=== PATIENT | female | born 1950 | race African-American/Black ===

== ENCOUNTER 2018-09-25 14:22 | Emergency (ER) | payer MEDICARE ==
[~2018-09-25] VITALS: Ht 167.6 cm; Wt 62.6 kg
--- NOTE | 2018-09-25 15:51 | EKG ---
[facility] [address] [place] [address] Test Date: 2018-09-25 Test Time: 15:34:08 Pat Name: LORENE NEWTON Department: Room: Gender: F Consumer Product Advisor: : [id number] Requested By: MARY HELM Order Number: [id number] Reading MD: Measurements Intervals [place] Rate: 57 P: 43 NV: 130 QRS: 20 QRSD: 84 T: -109 QT: 402 QTc: 394 Interpretive Statements SINUS RHYTHM LEFT ATRIAL ABNORMALITY R-S TRANSITION ZONE IN V LEADS DISPLACED TO THE RIGHT QRS(T) CONTOUR ABNORMALITY CONSIDER ANTEROLATERAL MYOCARDIAL DAMAGE ST & T ABNORMALITY, CONSIDER INFERIOR ISCHEMIA OR LEFT VENTRICULAR STRAIN ABNORMAL ECG RI6.01 No previous ECG available for comparison
[2018-09-25 16:02] LABS: BASO % 1 % (0-3); EOS % 0 % (0-3); HEMATOCRIT 40.5 % (36.0-47.0); HEMOGLOBIN 14.3 g/dL (12.0-15.5); LYMPH # 2.2 x10^3/uL (1.0-4.8); LYMPH % 30 % (24-48); MEAN CORPUSCULAR HEMOGLOBIN 31 pg (25-35); MEAN CORPUSCULAR HGB CONC 35 g/dL (31-37); MEAN CORPUSCULAR VOLUME 86 fL (79-100); MONO # 0.5 x10^3/uL (0.0-1.1); MONO % 7 % (0-9); NEUT # 4.6 x10^3uL (1.8-7.7); NEUT % 62 % (31-73); PLATELET COUNT 150 x10^3/uL (140-400); RED CELL DISTRIBUTION WIDTH 13.4 % (11.5-14.5); WHITE BLOOD COUNT 7.3 x10^3/uL (4.0-11.0)
[2018-09-25 16:12] LABS: CREATININE 0.7 mg/dL (0.6-1.0); GFR 100.4
[2018-09-25 16:18] VITALS: BP 144/65
[2018-09-25 16:18] LABS: ALBUMIN 3.9 g/dL (3.4-5.0); ALBUMIN/GLOBULIN RATIO 0.9 (1.0-1.7); TOTAL BILIRUBIN 0.4 mg/dL (0.2-1.0); TOTAL PROTEIN 8.2 g/dL (6.4-8.2)
--- NOTE | 2018-09-25 16:34 | PHYS DOC ---
Past Medical History Past Medical History: Hypertension, Other Additional Past Medical Histor: low bone density Past Surgical History: Hysterectomy Alcohol Use: None Drug Use: None Adult General Chief Complaint Chief Complaint: DIZZY/LIGHT HEADED [facility] HPI Patient is a 68 year olD female presenting with report of elevated blood pressures her blood pressures were actually pretty good in the 140s over 60s but she was worried that low number was too low so she only cut her dose to just morning instead of morning and night. She then began to develop some dizziness like the room was spinning on an intermittent basis as she is come to the emergency room because her blood pressures have been as high as 200 systolic occasionally over the last few days no chest pain no shortness of breath currently feels better no double vision symptoms are mild they're worsened with head position. Review of Systems Review of Systems Constitutional: Denies fever or chills [] Eyes: Denies change in visual acuity, redness, or eye pain [] HENT: Denies nasal congestion or sore throat [] Respiratory: Denies cough or shortness of breath [] Cardiovascular: No additional information not addressed in HPI [] GI: Denies abdominal pain, nausea, vomiting, bloody stools or diarrhea [] : Denies dysuria or hematuria [] Neurologic: Denies headache, focal weakness or sensory changes [] Endocrine: Denies polyuria or polydipsia [] All other systems were reviewed and found to be within normal limits, except as documented in this note. Allergies Allergies Allergies Coded Allergies Type Severity Reaction Last Updated Verified No Known Drug Allergies 07/09/16 No Physical Exam Physical Exam Constitutional: Well developed, well nourished, no acute distress, non-toxic appearance. [] HENT: Normocephalic, atraumatic, bilateral external ears normal, oropharynx moist, no oral exudates, nose normal. [] Eyes: PERRLA, EOMI, conjunctiva normal, no discharge. [] Neck: Normal range of motion, no tenderness, supple, no stridor. [] Cardiovascular:Heart rate regular rhythm, no murmur [] Lungs & Thorax: Bilateral breath sounds clear to auscultation [] Abdomen: Bowel sounds normal, soft, no tenderness, no masses, no pulsatile masses. [] Skin: Warm, dry, no erythema, no rash. [] Back: No tenderness, no CVA tenderness. [] Extremities: No tenderness, no cyanosis, no clubbing, ROM intact, no edema. [] Neurologic: Alert and oriented X 3, normal motor function, normal sensory function, no focal deficits noted. [][id number] intact male motion touch strength and sensation intact speech normal Psychologic: Affect normal, judgement normal, mood normal. [] Current Patient Data Vital Signs Vital Signs Date Time Temp Pulse Resp B/P (MAP) Pulse Ox O2 Delivery O2 Flow Rate FiO2 09/25/18 14:44 98.1 58 20 159/50 (86) 98 Room Air 98.1 Lab Values Laboratory Tests Test 09/25/18 15:36 09/25/18 15:50 Glucose (Fingerstick) 91 mg/dL (70-99) White Blood Count 7.3 x10^3/uL (4.0-11.0) Red Blood Count 4.70 x10^6/uL (3.50-5.40) Hemoglobin 14.3 g/dL (12.0-15.5) Hematocrit 40.5 % (36.0-47.0) Mean Corpuscular Volume 86 fL (79-100) Mean Corpuscular Hemoglobin 31 pg (25-35) Mean Corpuscular Hemoglobin Concent 35 g/dL (31-37) Red Cell Distribution Width 13.4 % (11.5-14.5) Platelet Count 150 x10^3/uL (140-400) Neutrophils (%) (Auto) 62 % (31-73) Lymphocytes (%) (Auto) 30 % (24-48) Monocytes (%) (Auto) 7 % (0-9) Eosinophils (%) (Auto) 0 % (0-3) Basophils (%) (Auto) 1 % (0-3) Neutrophils # (Auto) 4.6 x10^3uL (1.8-7.7) Lymphocytes # (Auto) 2.2 x10^3/uL (1.0-4.8) Monocytes # (Auto) 0.5 x10^3/uL (0.0-1.1) Eosinophils # (Auto) 0.0 x10^3/uL (0.0-0.7) Basophils # (Auto) 0.0 x10^3/uL (0.0-0.2) Sodium Level 141 mmol/L (136-145) Potassium Level 4.0 mmol/L (3.5-5.1) Chloride Level 104 mmol/L (98-107) Carbon Dioxide Level 30 mmol/L (21-32) Anion Gap 7 (6-14) Blood Urea Nitrogen 18 mg/dL (7-20) Creatinine 0.7 mg/dL (0.6-1.0) Estimated GFR (Cockcroft-Gault) 100.4 BUN/Creatinine Ratio 26 (6-20) H Glucose Level 98 mg/dL (70-99) Calcium Level 10.0 mg/dL (8.5-10.1) Total Bilirubin 0.4 mg/dL (0.2-1.0) Aspartate Amino Transferase (AST) 31 U/L (15-37) Alanine Aminotransferase (ALT) 33 U/L (14-59) Alkaline Phosphatase 41 U/L (46-116) L Troponin I Quantitative < 0.017 ng/mL (0.000-0.055) Total Protein 8.2 g/dL (6.4-8.2) Albumin 3.9 g/dL (3.4-5.0) Albumin/Globulin Ratio 0.9 (1.0-1.7) L Laboratory Tests 09/25/18 15:50 Laboratory Tests 09/25/18 15:50 EKG EKG []EKG shows a normal sinus rhythm with a rate of 57 there is an LVH pattern that is actually very similar to July 09, 2016 no STEMI is seen in light of the comparison Radiology/Procedures Radiology/Procedures [] Course & Med Decision Making Course & Med Decision Making Pertinent Labs and Imaging studies reviewed. (See chart for details) []68-year-old female presenting with elevated blood pressure. Currently in the emergency room blood pressure came down to 144 range she is feeling much better no stroke symptoms or signs on examination. She is doing much better in the emergency room I think that she just accidentally cut her dose in half show I instructed her take the medication as prescribed which is twice a day and follow -up with her primary care doctor next week for reevaluation no signs of end organ damage in the emergency room. Dragon Disclaimer Dragon Disclaimer This electronic medical record was generated, in whole or in part, using a voice recognition dictation system. Departure Departure Impression: Primary Impression: Elevated blood pressure reading Disposition: 01 HOME, SELF-CARE Condition: STABLE Patient Instructions: Hypertension, [id number] Additional Instructions: BP FOLLOW UP IN ONE TO TWO WEEKS. MARY HELM MD Sep 25, 2018 16:34
== END 2018-09-25 16:39 | disposition home or self-care (01) ==
LOC: ER 14:22
DX: I10 Essential (primary) hypertension (principal)
CPT/HCPCS: 36415; 80053; 82962; 84484; 85025; 93005; 99284-25

== ENCOUNTER 2020-07-25 10:30 | Emergency (ER) | payer MEDICARE ==
[~2020-07-25] VITALS: Ht 165.1 cm; Wt 56.8 kg
--- NOTE | 2020-07-25 12:27 | PHYS DOC ---
Past Medical History Past Medical History: Hypertension, Other Additional Past Medical Histor: low bone density Past Surgical History: Hysterectomy Smoking Status: Never Smoker Alcohol Use: None Drug Use: None General Adult EDM: Chief Complaint: LOWER BACK PAIN OR INJURY HPI: HPI: Patient is a 70 year old AA female who presents to the emergency department with complaints of bilateral low back pain for the last week. She reports that she was power washing her fence outside last week and noticed that she had developed the back pain after that. She denies any numbness, tingling, weakness, or edema of her lower extremities. She denies any shortness of breath, cough, chest pain, palpitations, abdominal pain, nausea, vomiting, diarrhea, dysuria, hematuria, or increased urinary frequency. She denies any fever or rash. The patient currently rates her pain a 10 out of 10 on the pain scale, she denies any alleviating factors, the pain is worse with movement and palpation. Review of Systems: Review of Systems: Constitutional: Denies fever or chills. [] HENT: Denies nasal congestion or sore throat. [] Respiratory: Denies cough or shortness of breath. [] Cardiovascular: Denies chest pain or edema. [] GI: Denies abdominal pain, nausea, vomiting, or diarrhea. [] : Denies dysuria. [] Musculoskeletal: See HPI Integument: Denies rash. [] Neurologic: Denies headache, focal weakness or sensory changes. [] Psychiatric: Denies depression or anxiety. [] Complete ROS is negative unless otherwise stated in the HPI. Heart Score: Risk Factors: Risk Factors: DM, Current or recent (<one month) smoker, HTN, HLP, family history of CAD, obesity. Risk Scores: Score 0 - 3: 2.5% MACE over next 6 weeks - Discharge Home Score 4 - 6: 20.3% MACE over next 6 weeks - Admit for Clinical Observation Score 7 - 10: 72.7% MACE over next 6 weeks - Early Invasive Strategies Allergies: Allergies: Allergies Coded Allergies Type Severity Reaction Last Updated Verified No Known Drug Allergies 07/09/16 No Physical Exam: PE: Constitutional: Well developed, well nourished, no acute distress, non-toxic appearance. [] HENT: Normocephalic, atraumatic, bilateral external ears normal, nose normal. [] Eyes: PERRLA, EOMI, conjunctiva normal, no discharge. [] Neck: Normal range of motion, no stridor. [] Cardiovascular:Heart rate regular rhythm Lungs & Thorax: Respirations even and unlabored, no retractions, no respiratory distress Abdomen: soft, no tenderness; suprapubic TTP Back: No bony tenderness, bilateral lumbar paraspinal TTP, no crepitus, no deformity, increased pain with straight leg lift on the left, no increased pain with straight leg lift on the right, no CVA tenderness Skin: Warm, dry, no erythema, no rash. [] Extremities: No cyanosis, ROM intact, no edema. [] Neurologic: Alert and oriented X 3, no focal deficits noted. [] Psychologic: Affect normal, judgement normal, mood normal. [] Current Patient Data: Vital Signs: Vital Signs Date Time Temp Pulse Resp B/P (MAP) Pulse Ox O2 Delivery O2 Flow Rate FiO2 07/25/20 11:58 98.0 66 18 156/68 (97) 96 Room Air 98.0 EKG: EKG: [] Radiology/Procedures: Radiology/Procedures: [] Course & Med Decision Making: Course & Med Decision Making Pertinent Labs and Imaging studies reviewed. (See chart for details) 70-year-old female presented emergency department with complaints of lower back pain bilaterally with left-sided sciatica. Patient reported that the symptoms gradually got worse after she had barrel washed her fence, she denied any injury, fall, or bony tenderness therefore x-ray was not done. Work-up included a UA that revealed a white blood cell count of 11-20, patient denied symptoms however will treat based off of this finding. Patient was given 2.5 mg of Valium and 10 mg of Decadron in the ER she reported some relief after these medications. Prescriptions written for naproxen and Valium for patient to take at home. Also the prescription was written for Keflex for treatment of the UTI. Encourage patient to follow-up with her primary care doctor in the next 1 to 2 days, return to the ER if symptoms worsen. Patient verbalized an understanding of home care, medications, follow-up, and return to ED instructions and was in agreement with the plan of care. [] Dragon Disclaimer: Dragon Disclaimer: This electronic medical record was generated, in whole or in part, using a voice recognition dictation system. Departure Departure Impression: Primary Impression: Bilateral low back pain with left-sided sciatica Qualified Codes: M54.42 - Lumbago with sciatica, left side Additional Impression: UTI (urinary tract infection) Qualified Codes: N30.00 - Acute cystitis without hematuria Disposition: 01 DC HOME SELF CARE/HOMELESS Condition: STABLE Referrals: EWELINA VIRGEN MD (PCP) Patient Instructions: Back Pain, Adult, [id number], Urinary Tract Infection, [id number] Additional Instructions: Fill the prescription(s) and use as directed. Apply heat or ice for to sore areas as needed for comfort. Activity as tolerated. Increase clear fluids and avoid bladder irritants such as caffeine, carbonation, and spicy foods. Follow up with your primary care doctor this week, return to the ER if symptoms worsen or you develop a fever. Scripts Diazepam (VALIUM) 2 Mg Tablet 2 MG PO TID PRN for PAIN, #12 TAB 0 Refills Prov: TOMMY NAM APRN 07/25/20 Naproxen (NAPROXEN) 375 Mg Tablet 1 TAB PO BID for pain for 10 Days, #20 TAB 0 Refills Prov: TOMMY NAM [employer]MING [employer] DUMPER 07/25/20 Cephalexin (KEFLEX) 500 Mg Capsule 500 MG PO BID for 7 Days, #14 CAP 0 Refills Prov: TOMMY NAM [employer] DUMPER 07/25/20 TOMMY NAM [employer]ING [employer] DUMPER Jul 25, 2020 12:27
[2020-07-25] MEDS ORDERED: DEXAMETHASONE SOD PHOS 20 MG/5 ML VIAL. IM ONE (12:30)
[2020-07-25] MEDS ORDERED: diazePAM 5 MG TABLET PO ONE (12:30)
[2020-07-25 14:28] LABS: BILIRUBIN,URINE NEGATIVE (NEG); CLARITY,URINE CLEAR; COLOR,URINE AMBER; NITRITE,URINE NEGATIVE (NEG); PROTEIN,URINE NEGATIVE (NEG-TRACE)
[2020-07-25 14:36] LABS: BACTERIA,URINE FEW /HPF (0-FEW); RBC,URINE 0 /HPF (0-2)
[2020-07-25] MEDS ORDERED: CEPH-264 PO (14:50)
[2020-07-25] MEDS ORDERED: NAPR-695 PO (14:50)
[2020-07-25] MEDS ORDERED: DIAZ2TAB PO (14:50)
[2020-07-25 14:55] VITALS: BP 142/65
== END 2020-07-25 15:15 | disposition home or self-care (01) ==
LOC: ER 10:30
DX: M54.42 Lumbago with sciatica, left side (principal); N30.00 Acute cystitis without hematuria; I10 Essential (primary) hypertension; Z90.710 Acquired absence of both cervix and uterus; Z98.890 Other specified postprocedural states
CPT/HCPCS: 81001; 87086; 96372; 99283; J1100